=== PATIENT | male | born 1985 | race African-American/Black ===

== ENCOUNTER 2020-07-12 17:06 | Observation (INO) | payer OTHER, SELFPAY ==
[2020-07-12] VITALS (10 sets, daily range): BP systolic 121–147; BP diastolic 74–97; PULSE 81–97; RESP 15–30; TEMP 36.3–37.2; O2SAT 98–100; BMI 33.2
--- NOTE | ~2020-07-12 | CT_ITS ---
EXAMINATION: CTA chest PE protocol DATE: 07/12/2020 19:34 INDICATION: Right-sided chest pain TECHNIQUE: Computed tomography angiography (CTA) of the chest was performed with 100 mL Omnipaque-350 intravenous contrast timed to evaluate the pulmonary arteries. Coronal maximum intensity projection 3D-reconstructions were created by the technologist. The dose-length product (DLP) was 286.99 mGy-cm. Automated exposure control and iterative reconstruction technique were employed. COMPARISON: None. FINDINGS: The pulmonary arteries are well-opacified. There are acute emboli in subsegmental pulmonary arterial branches of the right lower lobe. There are minimal peripheral airspace opacities in the di stribution of the affected pulmonary arteries. There is no evidence of right heart strain. There is n o pleural effusion or pneumothorax. A 4 mm nodule is present in the right lower lobe. No pathological ly enlarged thoracic lymph nodes are identified. The heart size is normal. IMPRESSION: 1. Acute pulmonary emboli in subsegmental branches of the right lower lobe. Peripheral airspace opaci ties in the distribution of the affected pulmonary arteries could reflect pulmonary infarct. These fi ndings were discussed with Dr. Graciela Perry MD in the Emergency Department at 1952 hours on 07/12. Reviewed, dictated and finalized at location A. IMPRESSION: 1. Acute pulmonary emboli in subsegmental branches of the right lower lobe. Per ipheral airspace opacities in the distribution of the affected pulmonary arteri es could reflect pulmonary infarct. These findings were discussed with Dr. Saira Perry MD in the Emergency Department at 1952 hours on 07/12/2020.
--- NOTE | ~2020-07-12 | US_ITS ---
EXAMINATION:US venous doppler LE BI INDICATION:Pulmonary embolism. TECHNIQUE: Multiple grayscale, color flow and Doppler images of the right and left lower extremity de ep venous systems were obtained and reviewed. COMPARISON: No prior studies for comparison. FINDINGS: The common femoral, superficial femoral and popliteal veins demonstrate normal respiratory variation, augmentation and compressibility. Color flow is also seen within the posterior tibial, pe roneal, greater saphenous and profunda veins. IMPRESSION: 1: No lower extremity deep venous thrombosis. Reviewed, dictated and finalized at location A.
[2020-07-12 17:40] LABS: Basophils Absolute Auto 0.1 K/mm3 (0.0-0.1); Basophils Percent Auto 0.6 % (0.2-1.2); Eosinophils Absolute Auto 0.1 K/mm3 (0-0.3); Eosinophils Percent Auto 0.9 % (0-4.4); Hematocrit 41.5 % (42.0-52.0); Immature Granulocyte Absolute 0.03 K/mm3 (0.00-0.031); Immature Granulocyte Percent A 0.3 % (0-0.5); Lymphocytes Absolute Auto 2.37 K/mm3 (0.9-3.2); Lymphocytes Percent Auto 22.1 % (18.3-44.2); Mean Corpuscular HGB Conc 33.7 g/dl (32-36); Mean Corpuscular Hemoglobin 29.4 pg (26-34); Mean Platelet Volume 9.6 fl (7.4-10.4); Monocytes Percent Auto 9.6 % (2.6-8.5); Neutrophils Absolute Auto 7.1 K/mm3 (1.3-6.7); Neutrophils Percent Auto 66.5 % (45.5-73.1); Platelet Count Result 442 k/mm3 (150-375); Red Blood Count 4.77 M/mm3 (4.6-6.20); Red Cell Distribution Width 11.8 % (11.5-14.5); White Blood Count 10.7 K/mm3 (4.5-10.0)
[2020-07-12 17:50] LABS: INR 1.1; Prothrombin Time 13.8 Seconds (11.1-14.7)
[2020-07-12 17:51] LABS: Anion Gap 11 mmol/L (8-16); Blood Urea Nitrogen 15 mg/dL (9-20); Calcium 9.6 mg/dL (8.4-10.2); Carbon Dioxide 24 mmol/L (22-30); Chloride 102 mmol/L (98-107); Estimated CRCL calculation 113 ml/min; Estimated Glomerular Filt Rate > 60; Glucose 119 mg/dL (75-110); Partial Thromboplastin Time 37.2 SECONDS (22.3-36.8); Potassium 3.7 mmol/L (3.4-5.0); Sodium 137 mmol/L (137-145)
--- NOTE | 2020-07-12 18:49 | PC.NURSE ---
pt c/o right lateral chest pain that increases with any movement. denies pain with palpation. pain also increases with deep inspiration. had knee surgery on 06/19/20 for acl, meniscus repair. pt more comfortable sitting in wheelchair. tachypneic.
--- NOTE | 2020-07-12 18:58 | PC.NURSE ---
Call to lab to request d-dimer results, states they will look into it.
--- NOTE | 2020-07-12 19:04 | ED.GENADULT ---
HPI - General Adult General Chief complaint: Unspecified Stated complaint: R chest pain Time Seen by Provider: 07/12/20 19:04 Source: patient Mode of arrival: wheelchair Limitations: no limitations History of Present Illness HPI narrative: Patient is a 34-year-old male with a history of ACL repair 06/19/20 who presents for evaluation of right-sided chest pain. Patient ports severe, sharp right-sided chest pain that has been present over the last several days. Patient states it is worse with movement, but not reproducible palpation to the chest. He reports shortness of breath, denies cough, fever or hemoptysis. He states that he has been doing physical therapy following ACL surgery. He reports his mobility is not back to baseline at this point. He does report mild radiation of the pain from the right chest to the right back. No associated rash. No associated leg edema. Patient states he has been prescribed tramadol for his knee pain following surgery, this does not seem to help with the chest pain. Related Data Home Medications Medication Instructions Recorded Confirmed tramadol PRN 07/12/20 Allergies Allergy/AdvReac Type Severity Reaction Status Date / Time No Known Allergies Allergy Verified 07/12/20 18:47 Review of Systems Review of Systems: Narrative: CONSTITUTIONAL: Denies fever, chills, or sweats. ENT: Denies rhinorrhea, congestion, sore throat, or otalgia. CARDIOVASCULAR: Reports chest pain, denies palpitations or edema RESPIRATORY: Denies cough, reports shortness of breath GASTROINTESTINAL: Denies abdominal pain, nausea, vomiting, or diarrhea. GENITOURINARY: Denies dysuria or hematuria. SKIN: Denies rash or itching. MUSCULOSKELETAL: Denies back pain, joint pain, or myalgia. NEUROLOGIC: Denies headache, numbness, or weakness. [facility] Past Medical History Medical History (Updated 07/12/20 @ 20:42 by Graciela Perry MD) No pertinent past medical history Surgical History Surgical History (Updated 07/12/20 @ 19:33 by Graciela Perry MD) S/P ACL surgery Social History Social History (Updated 07/12/20 @ 19:34 by Graciela Perry MD) Smoking status: Current some day smoker Tobacco type: cigars Alcohol intake: never Substance use: never Gender identity (if verbalized by the patient): Male Exam Narrative: Exam Narrative: GENERAL: Awake, alert, conversant HEAD: Normocephalic, atraumatic. EYES: PERRLA and EOMI. ENT: Nares clear, no rhinorrhea or epistaxis. Mucous membranes moist. NECK: Supple. CHEST: No respiratory distress, breathing even and non labored, no chest wall tenderness, tachypneic HEART: Regular rate, sinus rhythm ABDOMEN:Non distended, non tender EXTREMITIES: Knee brace in place of her right lower extremity. SKIN: Warm, dry, no rash. NEURO:No focal deficits. Alert and oriented x3 Course Vital Signs Vital signs: Vital Signs Temperature 36.9 C 07/12/20 17:24 Pulse Rate 97 07/12/20 17:24 Respiratory Rate 24 H 07/12/20 17:24 Blood Pressure 141/81 H 07/12/20 17:24 Pulse Oximetry 100 07/12/20 17:24 Temperature 36.9 C 07/12/20 17:24 Pulse Rate 97 07/12/20 18:47 Respiratory Rate 20 07/12/20 18:45 Blood Pressure 127/79 07/12/20 18:45 Pulse Oximetry 100 07/12/20 18:45 Medical Decision Making MDM Narrative Medical decision making narrative: Patient presenting for evaluation of right-sided chest pain. Given recent surgery and immobility I was concerned immediately for diagnosis of PE. Patient is tachypneic without hypoxemia. No severe tachycardia or hypotension. IV access obtained and labs were drawn. Patient was given an aspirin. No acute ischemic changes on his EKG. Initial troponin is not detected. D-dimer elevated. Patient with CTA that is notable for multiple pulmonary emboli on the right with pulmonary infarct. No evidence of right heart strain. Pulmonary index severity score calculated, patient falls into the low to moderat
[2020-07-12 19:08] LABS: D Dimer 2.08 ug/mL (<0.48)
--- NOTE | 2020-07-12 19:13 | PC.NURSE ---
Patient has requested to remain seated in wheelchair. Reports increase in pain when he reclines back or lays down.
--- NOTE | 2020-07-12 19:18 | ECG_ITS ---
Measurements Intervals [place] Rate: 86 P: 24 MT: 151 QRS: 52 QRSD: 92 T: 28 QT: 344 QTc: 412 Interpretive Statements SINUS RHYTHM ST ELEVATION IN DIFFUSE LEADS- PROBABLY EARLY REPOLARIZATION BORDERLINE ECG Electronically Signed On 07-12-2020 20:22:08 CDT by Efraín John D.O.
[2020-07-12 19:32] LABS: Troponin I < 0.012 ng/mL (0.000-0.034)
[2020-07-12] MEDS: MORPHINE SULFATE (*CRX) 4 MG/ML INJ IV PUSH ×2 (19:44→20:29)
[2020-07-12] MEDS: ONDANSETRON INJ 4 MG/2 ML VIAL IV PUSH (19:44)
[2020-07-12] MEDS: ASPIRIN 81 MG CHEWABLE TABLET 324 MG PO (19:47)
--- NOTE | 2020-07-12 19:50 | PC.NURSE ---
Patient still sitting in wheel chair. Does not want to get into the bed due to increased pain when reclined or lying down. Patient was educated on fall risk and is aware that he needs to call the staff to help him move around. He has agreed to stay seated in the wheelchair and not to get up or move around without help.
[2020-07-12] MEDS: HEPARIN SODIUM 5,000 UNITS/ML VIAL 6500 UNITS IV PUSH (20:30)
[2020-07-12] MEDS: HEPARIN SOD/D5W 100 UNITS/ML 25,000 UNITS/250 ML BAG 14 UNITS IV CONT (21:02)
--- NOTE | 2020-07-12 21:24 | PM.IMHP ---
H&P: HPI History of Present Illness Date/Time: 07/12/20 21:24 Chief complaint: Pulmonary emboli, Pulmonary infarct Narrative: This is a pleasant 34-year-old male who presented to the hospital with a complaint of right-sided pleuritic chest pain as well as associated shortness of breath over the past week and a half. The patient is known to have had an ACL repair on June 19, 2020. He started to notice that he was having right-sided chest pain about a week and half ago but this has clearly worsened over the past few days. Last night the patient only slept 1 hour because he was having severe right-sided pain. He also reports unquantified fevers. He denies any significant coughing or hemoptysis. He denies any previous history of blood clots or pulmonary emboli. There is no past family history of thrombophilia. the patient denies any other significant symptoms including hematuria, rectal bleeding, black stools, lower extremity swelling or pain. The patient states that he has virtually no discomfort of his right knee anymore. CTA chest which was performed in the ER [facility] demonstrated acute pulmonary emboli in subsegmental branches of the right lower lobe. Peripheral airspace opacities in the distribution of the affected pulmonary arteries could reflect pulmonary infarct. The patient was started on heparin IV for anticoagulation. we been asked admit the patient to the hospital as he does not have a primary care provider and care coordination is not available at this time. The patient is currently saturating 100% on room air. No other complaints. Review of Systems Review of Systems: All systems reviewed & are unremarkable except as noted in HPI and below PMFSH Past Medical History Medical History No pertinent past medical history Surgical History Surgical History S/P ACL surgery Family History Family History Other Unknown family medical history Social History Social History Years smoked: 10 Smoking status: Former smoker Tobacco type: cigars Additional smoking assessment comments: 2 cigars per day Alcohol intake: former Substance use: never Substance use type: does not use Living arrangements: alone Occupation/Education: occupation Gender identity (if verbalized by the patient): Male Sexual Orientation (if Verbalized by the Patient): Straight or Heterosexual Spiritual care concerns: No Agree to blood products: Yes Meds Home Medications and Allergies Home Medications Medication Instructions Recorded Confirmed Type tramadol 50 mg PO PRN PRN 07/12/20 07/12/20 History acetaminophen 650 mg PO Q6H PRN #30 cap 07/13/20 Rx apixaban [Eliquis] 5 mg PO BID #74 tablet 07/13/20 Rx Allergies Allergy/AdvReac Type Severity Reaction Status Date / Time No Known Allergies Allergy Verified 07/12/20 18:47 Vital Signs Vital Signs - 24 hr 07/12/20 17:24 07/12/20 18:45 07/12/20 18:47 Temperature 36.9 C Pulse Rate 97 94 97 Respiratory Rate 24 H 20 Blood Pressure 141/81 H 127/79 Pulse Oximetry 100 100 Exam Const: General: cooperative, alert, awake and acute distress moderate Nutritional Appearance: well nourished Orientation/consciousness: patient oriented x3 HENMT: Head: normal to inspection General nose exam: Normal external nose present Face and sinus: normal facial exam Mouth: Yes Normal oral and palatal mucosa present and Yes oropharynx normal Eyes: Pupils: Equal, round and reactive pupils present EOM: EOMs intact bilaterally Neck: Neck: supple and no JVD Thyroid: thyroid normal Lymphatic: lymphadenopathy not noted Resp: Effort & Inspection: tachypneic Auscultation: clear to auscultation bilaterally Cardio: Rate: tachycardic
--- NOTE | 2020-07-12 23:27 | ADMGEN ---
This patient, Danny Campa, was admitted to [facility] Surg Room 321-01. Patient/family oriented to hospital policies and general routines including ID bracelet, bed and alarms, visiting hours, pain management, procedures, bathroom and other care routines, personal items, smoking policy, room service/diet, and visiting hours. Valuables list has been completed. Information on how to activate the Rapid Response Team has been discussed. Patient/Family are encouraged to report perceived risks to care and to ask questions if they do not understand what they are told or what they should do.
[2020-07-12 23:45] LABS: Partial Thromboplastin Time 151.9 SECONDS (22.3-36.8)
[2020-07-12] MEDS: HYDROmorphone HCL INJ (*CRX) 1 MG/ML SYR IV PUSH (23:48)
[2020-07-13] MEDS: HYDROmorphone HCL INJ (*CRX) 1 MG/ML SYR IV PUSH ×2 (02:57→05:54)
[2020-07-13 06:00] VITALS: BP 122/81; PULSE 84; RESP 16; TEMP 36.3; O2SAT 100
[2020-07-13 07:34] LABS: Basophils Absolute Auto 0.1 K/mm3 (0.0-0.1); Basophils Percent Auto 0.6 % (0.2-1.2); Eosinophils Absolute Auto 0.2 K/mm3 (0-0.3); Eosinophils Percent Auto 1.9 % (0-4.4); Hematocrit 39.2 % (42.0-52.0); Hemoglobin 13.2 g/dL (14.0-18.0); Immature Granulocyte Absolute 0.04 K/mm3 (0.00-0.031); Immature Granulocyte Percent A 0.5 % (0-0.5); Lymphocytes Absolute Auto 2.75 K/mm3 (0.9-3.2); Lymphocytes Percent Auto 34.4 % (18.3-44.2); Mean Corpuscular HGB Conc 33.7 g/dl (32-36); Mean Corpuscular Hemoglobin 29.3 pg (26-34); Mean Corpuscular Volume 87.1 fl (80-100); Mean Platelet Volume 9.2 fl (7.4-10.4); Monocytes Absolute Auto 0.8 K/mm3 (0.1-0.6); Monocytes Percent Auto 10.3 % (2.6-8.5); Neutrophils Absolute Auto 4.2 K/mm3 (1.3-6.7); Neutrophils Percent Auto 52.3 % (45.5-73.1); Platelet Count Result 408 k/mm3 (150-375); Red Cell Distribution Width 11.8 % (11.5-14.5)
[2020-07-13 07:48] LABS: Anion Gap 8 mmol/L (8-16); Blood Urea Nitrogen 14 mg/dL (9-20); Calcium 8.9 mg/dL (8.4-10.2); Carbon Dioxide 26 mmol/L (22-30); Chloride 101 mmol/L (98-107); Estimated CRCL calculation 114 ml/min; Estimated Glomerular Filt Rate > 60; Glucose 102 mg/dL (75-110); Potassium 3.9 mmol/L (3.4-5.0); Sodium 135 mmol/L (137-145)
[2020-07-13 08:17] LABS: Partial Thromboplastin Time 86.3 SECONDS (22.3-36.8)
[2020-07-13] MEDS: oxyCODONE/ACETAMINOPHEN (*CRX) 5-325 MG TABLET 1 TABLET PO (09:32)
[2020-07-13] MEDS: APIXABAN 5 MG TABLET 10 MG PO (10:37)
--- NOTE | 2020-07-13 13:30 | PM.DS ---
DS: Admitting Diagnosis Admitting Diagnosis Admitting Diagnosis: Pulmonary emboli, Pulmonary infarct DS: Discharge Diagnosis Discharge Diagnosis (1) Pulmonary embolism and infarction: Code(s): I26.99 - Other pulmonary embolism without acute cor pulmonale Status: Acute Assessment and Plan: Chest CTA showed acute pulmonary emboli in subsegmental branches of right lower lobe. Bilateral venous doppler negative for lower extremity DVT. He was started on heparin drip and was transition to oral Eliquis which he will continue as an outpatient. We talked extensively about risks of bleeding with this medication. Patient understands and agrees to proceed. He will need to establish care with on-call PCP and be seen in 1 week for follow up. (2) Chest pain at rest: Code(s): R07.9 - Chest pain, unspecified Status: Acute Assessment and Plan: Right-sided pleuritic chest pain mostly on posterior chest wall worsened with inspiration or movement. Not reproducible on exam. No radiation. Secondary to acute pulmonary emboli. Troponins negative and no ST changes on EKG. Pain improved with analgesics. Continue prn acetaminophen with home tramadol as needed for breakthrough pain. (3) S/P ACL surgery: Code(s): Z98.890 - Other specified postprocedural states Status: Chronic Assessment and Plan: Torn ACL secondary to work injury. Underwent surgical repair on 06/19/[address] Garcia in [place], [place]. He has follow up scheduled with Dr. Garcia in 1 week. Continue weight bearing per ortho recommendations. Patient is not driving. DS: Summary Hospital Course Reason for hospitalization: Pulmonary embolism Hospital Course: Date of admission: 07/12/2020 Date of discharge: 07/13/2020 Danny Campa is a 34 year old healthy male who is s/p ACL surgery on 06/19/2020 who presented to the emergency department on 07/12/2020 with complaints of right-sided pleuritic chest pain and shortness of breath ongoing for 1.5 weeks. No history of blood clots or clotting disorders. At presentation, he was tachypneic with stable O2 saturations, additional VSS, WBC 10.7, plt 442, electrolytes stable, d-dimer 2.08, troponin <0.012, and CTA showing acute pulmonary emboli in subsegmental branches of right lower lobe. He was admitted to the hospitalist service for further evaluation and management given the fact that he did not have a PCP and there was no care coordination in the ED to assist with specialty medications and arrange follow up. He was started on heparin drip and transitioned to PO Eliquis which he will continue. This medication was discussed with him in detail. Follow up was arranged with city controller PCP. He will call the office on Wednesday to schedule an appointment within 1 week. His oxygen saturations remained stable on room air and tachypnea resolved. Pleuritic chest pain persisted but improved with analgesics. He will continue acetaminophen as needed. Given his stable status, he was determined to no longer require inpatient care and felt comfortable to return home. We discussed worrisome signs and symptoms for which to return and he was educated on his medications. He will need to follow up with his orthopedic surgeon as previously scheduled. All of his questions were answered. He was discharged in hemodynamically stable condition on 07/13/2020. Status at Discharge Functional status at discharge: independent ambulation Overall status at discharge: patient is back to baseline Time Spent with Patient Time attestation: Total time spent providing and/or coordinating discharge services:45 minutes Time spent: Greater than 30 minutes Exam Narrative: Exam Narrative: Mr. Campa is a well nourished, well appearing 34 year old male who is lying semirecumbent in bed. Appears comfortable and is in no acute respiratory distress. HR 84, BP 122/81, RR 16, T 97.3?, 100% on room air Neuro: awake, alert and oriented x4, speech clear, no focal ne
[2020-07-13 14:00] VITALS: BP 126/84; PULSE 83; RESP 18; TEMP 36.3; O2SAT 100
== END 2020-07-13 15:28 | disposition home or self-care (01) ==
LOC: ANHED 21:00 → ANH3MEDSUR 21:42
PROVIDERS: Emergency Medicine; Admitting Provider Family Medicine; Emergency Provider Emergency Medicine; PCP Emergency Medicine; Visit Provider Internal Medicine
DX: I26.99 Other pulmonary embolism without acute cor pulmonale (principal); R07.9 Chest pain, unspecified; F17.290 Nicotine dependence, other tobacco product, uncomplicated
CPT/HCPCS: 36415; 71275; 80048; 84484; 85025; 85380; 85610; 85730; 93005; 93970; 96365; 96366; 96375; 96376; 99285; A9270; G0378; J1170; J1644; J2270; J2405; Q9967